=== PATIENT | female | born 1965 | race Caucasian/White ===

== ENCOUNTER 2025-04-26 10:37 | Emergency (ER) | payer BC | END 2025-04-26 13:02 | disposition home or self-care (01) | LOC: CSHERS 10:37 | DX: S83.91XA Sprain of unspecified site of right knee, initial encounter (principal); I10 Essential (primary) hypertension; X50.0XXA Overexertion from strenuous movement or load, initial encounter; Z79.899 Other long term (current) drug therapy | CPT/HCPCS: 99283 ==